=== PATIENT | male | born 1960 | race Caucasian/White ===

== ENCOUNTER → 2020-08-31 00:22 | Outpatient (CLI) | payer OTHER, SELFPAY ==
[2020-08-31 18:31] LABS: SARS-CoV-2 RNA PCR Negative
== END ==
PROVIDERS: Visit Provider Internal Medicine Gastroenterology
DX: Z01.812 Encounter for preprocedural laboratory examination (principal); Z20.822 Contact with and (suspected) exposure to COVID-19
CPT/HCPCS: C9803; U0003; U0005

== ENCOUNTER 2020-09-03 04:28 | Day surgery (SDC) | payer OTHER, SELFPAY ==
[2020-08-24 12:27] VITALS: BMI 31.1
[2020-09-03 10:58] VITALS: BP 136/86; PULSE 79; RESP 18; TEMP 36.3; O2SAT 99
[2020-09-03] MEDS: LACTATED RINGERS 1,000 ML 150 ML IV CONT (11:03)
--- NOTE | 2020-09-03 11:32 | WPDANESEPPF ---
Anes - Initial Pre Proc Eval Procedure: Operation Date: 09/03/20 12:00 Proposed Procedures p Screening Colonoscopy - Ruiz Covington MD Date/Time: 09/03/20 11:32 Surgeon: Ruiz Covington MD Pre Op Diagnosis: neoplasm screening Patient Data Age: 59 Gender: M Height: 5 ft 7 in Weight: 88 kg Last Vital Signs Temp 97.3 F L 09/03/20 10:58 Pulse 79 09/03/20 10:58 Resp 18 09/03/20 10:58 BP 136/86 09/03/20 10:58 Pulse Ox 99 09/03/20 10:58 Allergies Allergy/AdvReac Type Severity Reaction Status Date / Time No Known Allergies Allergy Verified 09/03/20 10:56 Home Medications Medication Instructions Recorded Confirmed Type carvedilol 12.5 mg PO DAILY 08/24/20 09/03/20 History chlorthalidone 25 mg PO DAILY 08/24/20 09/03/20 History irbesartan 300 mg PO DAILY 08/24/20 09/03/20 History Patient hx anesthesia problems: none Family hx anesthesia problems: none [facility] Past Medical History Medical History (Updated 09/03/20 @ 11:29 by Alin Warren MD) Hypertension NEHA (obstructive sleep apnea) uses mouth piece Social History Social History Smoking status: Never smoker Alcohol intake: never Substance use: never Substance use type: does not use Living arrangements: with family Spiritual care concerns: No Anes - Eval Final PreProcedure Day of Procedure 09/03/20 11:32 Patient weight: overweight Heart: regular rate and rhythm Lungs: clear to auscultation Airway: Mallampati scale class II Neurological: alert and oriented Last oral intake: >/= 8 hours ASA classification: II Emergent: no Anesthetic plan: proceed Anesthesia type and monitoring: general GIVS and standard monitoring Informed Consent: The patient's anesthetic plan and its attendant risks and benefits were discussed with the patient/family/POA. Questions were solicited and answers provided to the satisfaction of the patient/family/POA.
--- NOTE | 2020-09-03 11:51 | PM.HPGS ---
History of Present Illness History of Present Illness Consent: Risks, benefits, and alternatives have been discussed and questions answered. Patient agrees to proceed with procedure. Chief complaint: neoplasm screening Narrative: Pino Longoria is a 59 year old male with last colonoscopy 2010, both mother and father with colon cancer Review of Systems Constitutional: Constitutional: Denies headache(s) and Denies weakness Eyes: Eyes: Denies blurry vision ENT: Reports Normal hearing present, Denies headache(s) and Denies neck pain Cardiovascular: Cardiovascular: Denies chest pain and Denies dyspnea Respiratory: Respiratory: Denies dyspnea Gastrointestinal: Gastrointestinal: Reports no additional gastrointestinal complaints Genitourinary: Genitourinary: Denies dysuria Musculoskeletal: Musculoskeletal: Denies neck pain Integumentary/Breasts: Skin/Breast: Denies dry skin Neurologic: Reports Normal hearing present, Denies headache(s) and Denies weakness Psychiatric: Psychiatric: Denies anxiety Endocrine: Endocrine: Denies change in body appearance Hematologic/Lymphatic: Hematologic/Lymphatic: Denies easy bleeding Allergic/Immunologic: Allergic/Immunologic: Denies urticaria PMFSH Past Medical History Medical History (Updated 09/03/20 @ 11:51 by Ruiz Covington MD) Family history of colon cancer Hypertension NEHA (obstructive sleep apnea) uses mouth piece Social History Social History Smoking status: Never smoker Alcohol intake: never Substance use: never Substance use type: does not use Living arrangements: with family Spiritual care concerns: No Meds Home Medications and Allergies Home Medications Medication Instructions Recorded Confirmed Type carvedilol 12.5 mg PO DAILY 08/24/20 09/03/20 History chlorthalidone 25 mg PO DAILY 08/24/20 09/03/20 History irbesartan 300 mg PO DAILY 08/24/20 09/03/20 History Allergies Allergy/AdvReac Type Severity Reaction Status Date / Time No Known Allergies Allergy Verified 09/03/20 10:56 Vital Signs Vital Signs - 24 hr 09/03/20 10:58 Temperature 97.3 F L Pulse Rate 79 Respiratory Rate 18 Blood Pressure 136/86 Pulse Oximetry 99 Exam Const: General: comfortable and no acute distress HENMT: General nose exam: Normal nares present Eyes: General: appearance normal, both eyes and all related structures Neck: Neck: no JVD Resp: Auscultation: clear to auscultation bilaterally Cardio: Rate: regular rate Rhythm: regular rhythm GI: Inspection: non-distended GI Palp: Yes Soft to palpation Skin: General skin exam: normal color Neuro: General: gait normal Speech: normal speech Extrem: General: normal to inspection Psych: Mental Status: mental status grossly normal Assessment and Plan Assessment and plan (1) Family history of colon cancer: Code(s): Z80.0 - Family history of malignant neoplasm of digestive organs Status: Acute Assessment and Plan: colonoscopy
[2020-09-03 12:08] VITALS: BP 100/61; PULSE 74; RESP 18; O2SAT 97
[2020-09-03 12:18] VITALS: BP 100/72; PULSE 76; RESP 15; O2SAT 99
[2020-09-03 12:28] VITALS: BP 107/65; PULSE 79; RESP 16; O2SAT 99
== END 2020-09-03 12:40 | disposition home or self-care (01) ==
PROVIDERS: PCP Internal Medicine; Referring Provider Internal Medicine; Visit Provider Internal Medicine Gastroenterology
PROC: 0DJD8ZZ Inspection of Lower Intestinal Tract, Via Natural or Artificial Opening Endoscopic (ICD-10-PCS; CPT 45378; principal; 2020-09-03 12:00)
DX: Z12.11 Encounter for screening for malignant neoplasm of colon (principal); D12.3 Benign neoplasm of transverse colon; D12.5 Benign neoplasm of sigmoid colon; K64.8 Other hemorrhoids; I10 Essential (primary) hypertension; G47.33 Obstructive sleep apnea (adult) (pediatric); Z80.0 Family history of malignant neoplasm of digestive organs
CPT/HCPCS: 45380; 45385; 88305; C9803; J2704; J7120; U0003; U0005

== ENCOUNTER 2023-12-12 00:39 | Day surgery (SDC) | payer OTHER, SELFPAY ==
[2023-11-26 08:57] VITALS: BMI 30.5
[2023-12-12 08:18] VITALS: BP 140/81; PULSE 75; RESP 18; TEMP 36.2; O2SAT 100; BMI 29.2
[2023-12-12] MEDS: LACTATED RINGERS 1,000 ML 150 ML IV CONT (08:26)
--- NOTE | 2023-12-12 08:52 | P.PNAN_ITS ---
Anes - Initial Pre Proc Eval Procedure: Operation Date: 12/12/23 09:30 Proposed Procedures p Colonoscopy - Ruiz Covington MD Date/Time: 12/12/23 08:52 Surgeon: Ruiz Covington MD Pre Op Diagnosis: Personal history colon polyps, Family history jose Patient Data Age: 63 Gender: M Height: 1.7 m Weight: 84.6 kg Last Vital Signs Temp 97.1 F L 12/12/23 08:18 Pulse 75 12/12/23 08:18 Resp 18 12/12/23 08:18 BP 140/81 12/12/23 08:18 Pulse Ox 100 12/12/23 08:18 O2 Del Method Room Air 12/12/23 08:18 Allergies Allergy/AdvReac Type Severity Reaction Status Date / Time Sulfa (Sulfonamide Allergy Hives Verified 12/12/23 08:17 Antibiotics) Home Medications Medication Instructions Recorded Confirmed Type carvedilol 12.5 mg tablet 12.5 mg PO DAILY 08/24/20 12/12/23 History chlorthalidone 25 mg tablet 25 mg PO DAILY 08/24/20 12/12/23 History irbesartan 300 mg tablet 300 mg PO DAILY 08/24/20 12/12/23 History Patient hx anesthesia problems: none Family hx anesthesia problems: none Results Review: All pre-operative results and documents have been reviewed as part of the pre-op erative evaluation. [facility] Past Medical History Medical History (Updated 09/03/20 @ 11:51 by Ruiz Covington MD) Family history of colon cancer Hypertension NEHA (obstructive sleep apnea) uses mouth piece Social History Social History Smoking status: Never smoker Alcohol intake: never Substance use: never Substance use type: does not use Living arrangements: with family Spiritual care concerns: No Anes - Eval Final PreProcedure Day of Procedure 12/12/23 08:52 Patient weight: normal Heart: regular rate and rhythm Lungs: clear to auscultation Airway: Mallampati scale class II Neurological: alert and oriented Last oral intake: >/= 8 hours ASA classification: II Emergent: no Anesthetic plan: proceed Anesthesia type and monitoring: general GIVS and standard monitoring Results Review: All pre-operative results and documents have been reviewed as part of the pre- operative evaluation. Informed Consent: The patient's anesthetic plan and its attendant risks and benefits were discussed with the patient/family/POA. Questions were solicited and answers provided to the satisfaction of the patient/family/POA.
--- NOTE | 2023-12-12 09:02 | PM.HPGS ---
History of Present Illness History of Present Illness Consent: Risks, benefits, and alternatives have been discussed and questions answered. Patient agrees to proceed with procedure. Chief complaint: Personal history colon polyps, Family history jose Narrative: Pino Longoria Jr. is a 63 year old male with colon polyp in 2020, both parents had colon cancer Review of Systems Review of Systems: All systems reviewed & are unremarkable except as noted in HPI and below PMFSH Past Medical History Medical History (Updated 12/12/23 @ 09:03 by Ruiz Covington MD) Adenomatous colon polyp Family history of colon cancer Hypertension NEHA (obstructive sleep apnea) uses mouth piece Social History Social History Smoking status: Never smoker Alcohol intake: never Substance use: never Substance use type: does not use Living arrangements: with family Spiritual care concerns: No Meds Home Medications and Allergies Home Medications Medication Instructions Recorded Confirmed Type carvedilol 12.5 mg tablet 12.5 mg PO DAILY 08/24/20 12/12/23 History chlorthalidone 25 mg tablet 25 mg PO DAILY 08/24/20 12/12/23 History irbesartan 300 mg tablet 300 mg PO DAILY 08/24/20 12/12/23 History Allergies Allergy/AdvReac Type Severity Reaction Status Date / Time Sulfa (Sulfonamide Allergy Hives Verified 12/12/23 08:17 Antibiotics) Vital Signs Vital Signs - 24 hr 12/12/23 08:18 Temperature 97.1 F L Pulse Rate 75 Respiratory Rate 18 Blood Pressure 140/81 Pulse Oximetry 100 Oxygen Delivery Room Air Exam Const: General: comfortable and no acute distress HENMT: Face/Nose/Sinus: Normal nares present Eyes: General: appearance normal, both eyes and all related structures Neck: Neck: no JVD Resp: Auscultation: clear to auscultation bilaterally Cardio: Rate: regular rate Rhythm: regular rhythm GI: Inspection: non-distended GI Palp: Yes Soft to palpation Skin: General skin exam: normal color Neuro: General: gait normal Speech: normal speech Extrem: General: normal to inspection Psych: Mental Status: mental status grossly normal Assessment and Plan Assessment and plan (1) Family history of colon cancer: Code(s): Z80.0 - Family history of malignant neoplasm of digestive organs Status: Acute Assessment and Plan: colonoscopy (2) Adenomatous colon polyp: Code(s): D12.6 - Benign neoplasm of colon, unspecified Status: Acute
[2023-12-12 09:16] VITALS: BP 105/55; PULSE 73; RESP 18; O2SAT 100
[2023-12-12 09:26] VITALS: BP 126/80; PULSE 70; RESP 18; O2SAT 100
[2023-12-12 09:36] VITALS: BP 124/77; PULSE 70; RESP 18; O2SAT 100
== END 2023-12-12 09:47 | disposition home or self-care (01) ==
PROVIDERS: PCP Internal Medicine; Visit Provider Internal Medicine Gastroenterology
PROC: 0DJD8ZZ Inspection of Lower Intestinal Tract, Via Natural or Artificial Opening Endoscopic (ICD-10-PCS; CPT 45378; principal; 2023-12-12 09:30)
DX: Z12.11 Encounter for screening for malignant neoplasm of colon (principal); K63.5 Polyp of colon; K64.8 Other hemorrhoids; Z80.0 Family history of malignant neoplasm of digestive organs; I10 Essential (primary) hypertension; G47.33 Obstructive sleep apnea (adult) (pediatric)
CPT/HCPCS: 45380; 88305; J2704; J7120